=== PATIENT | female | born 1975 | race Caucasian/White ===

== ENCOUNTER 2018-06-22 06:31 | Emergency (ER) | payer MEDICAID, OTHER ==
[~2018-06-22] VITALS: Ht 170.2 cm; Wt 89.6 kg
[~2018-06-22 06:31] MED LIST: NEOM10DR45 EACH EAR; ONDA4TAB59 PO; PERM60CR4 TP
[2018-06-22] MEDS ORDERED: HYDROcodone/acetaminophen 5mg/325mg tablet PO ONE ×2 (06:50→09:10)
[2018-06-22] MEDS ORDERED: ondansetron 4mg rapidly disintigrating tab PO ONE (06:50)
[2018-06-22 06:55] LABS: URINE HCG NEGATIVE (NEG)
[2018-06-22 07:00] LABS: CLARITY,URINE CLEAR (Clear); COLOR,URINE YELLOW (Yellow); GLUCOSE, URINE NEGATIVE (Neg); KETONES,URINE NEGATIVE (Neg); LEUKOCYTE ESTERASE ,URINE NEGATIVE (Neg); NITRITES, URINE NEGATIVE (Neg); OCCULT BLOOD,URINE NEGATIVE (Neg); PH,URINE 5.5 (4.8-8.0); PROTEIN,URINE NEGATIVE (Neg); UROBILINOGEN,URINE 0.2 E.U/dL (0.2-1.0)
[2018-06-22 07:01] LABS: UA COLLECTION TYPE CLN CATCH MIDSTREAM
[2018-06-22 07:22] LABS: ALANINE AMINOTRANSFERASE 31 U/L (12-78); ALBUMIN 3.8 G/DL (3.4-5.0); ALKALINE PHOSPHATASE 88 IU/L (46-116); AMYLASE 51 U/L (25-115); ANION GAP 13 (8-16); ASPARTATE AMINO TRANSFERASE 20 U/L (10-37); BILIRUBIN,TOTAL 0.3 MG/DL (0.1-1.0); BLOOD UREA NITROGEN 9 MG/DL (7-18); BUN/CREATININE RATIO 11.1 (6.6-38.0); CALCIUM 9.2 MG/DL (8.5-10.1); CHLORIDE 103 MMOL/L (99-107); CREATININE 0.81 MG/DL (0.40-0.90); GLUCOSE 131 MG/DL (70-104); LIPASE 172 U/L (73-393); POTASSIUM 3.7 MMOL/L (3.5-5.1); SODIUM 141 MMOL/L (135-145); TOTAL CARBON DIOXIDE 24.9 MMOL/L (24-32); TOTAL PROTEIN 7.8 G/DL (6.4-8.2); eGFR 77 ML/MIN
[2018-06-22] MEDS ORDERED: iohexol 300mg/ml 100ml inj. ONE (07:27)
[2018-06-22 07:35] VITALS: BP 123/79
[2018-06-22 07:36] LABS: BASOPHILS % (AUTO) 0.5 % (0-1); EOSINOPHILS # (AUTO) 0.2 X10'3 (0-0.9); HEMATOCRIT 44.5 % (35.0-45.0); LYMPHOCYTES # (AUTO) 0.9 X10'3 (1.1-4.8); LYMPHOCYTES % (AUTO) 10.7 % (21-51); MEAN CORPUSCULAR HEMOGLOBIN 27.3 PG (27.0-31.0); MEAN CORPUSCULAR HGB CONC 33.7 % (33.0-36.5); MEAN CORPUSCULAR VOLUME 80.8 FL (78-98); MEAN PLATELET VOLUME 8.4 FL (7.4-10.4); MONOCYTES # (AUTO) 0.4 X10'3 (0-0.9); MONOCYTES % (AUTO) 4.3 % (2-12); NEUTROPHILS # (AUTO) 6.7 X10'3 (1.8-7.7); NEUTROPHILS % (AUTO) 81.5 % (42-75); PLATELET COUNT 258 X10'3 (140-440); WHITE BLOOD COUNT 8.3 X10'3 (4.5-11.0)
[2018-06-22 07:47] LABS: PROTHROMBIN TIME 10.3 SECONDS (9.0-12.0)
[2018-06-22] MEDS ORDERED: ONDA8TAB9 PO (09:12)
[2018-06-22] MEDS ORDERED: HYDR-3965 PO (09:12)
== END 2018-06-22 09:48 | disposition home or self-care (01) ==
LOC: ER 06:31
DX: R19.03 Right lower quadrant abdominal swelling, mass and lump (principal); R10.11 Right upper quadrant pain
CPT/HCPCS: 36415; 74177; 76700; 80053; 81003; 81025; 82150; 83690; 85025; 85610; 99284; Q9967

== ENCOUNTER 2019-04-30 16:10 | Emergency (ER) | payer BC ==
[~2019-04-30] VITALS: Ht 170.2 cm; Wt 90.9 kg
[~2019-04-30 16:10] MED LIST changes: -NEOM10DR45 EACH EAR; +ONDA8TAB9 PO; -PERM60CR4 TP
[2019-04-30] MEDS ORDERED: ROBDML PO (16:45)
[2019-04-30] MEDS ORDERED: IPRA30SP (16:45)
[2019-04-30 17:05] VITALS: BP 114/87
== END 2019-04-30 16:55 | disposition home or self-care (01) ==
LOC: ER 16:10
DX: J06.9 Acute upper respiratory infection, unspecified (principal); F17.200 Nicotine dependence, unspecified, uncomplicated; Z90.710 Acquired absence of both cervix and uterus; Z79.899 Other long term (current) drug therapy
CPT/HCPCS: 99283

== ENCOUNTER 2019-05-05 23:13 | Emergency (ER) | payer BC ==
[~2019-05-05] VITALS: Ht 170.2 cm; Wt 79.0 kg
[~2019-05-05 23:13] MED LIST changes: +IPRA30SP; +ROBDML PO
[2019-05-05 23:15] VITALS: BP 110/75
[2019-05-05] MEDS ORDERED: AZIT250T PO (23:28)
== END 2019-05-05 23:50 | disposition home or self-care (01) ==
LOC: ER 23:14
DX: J06.9 Acute upper respiratory infection, unspecified (principal); Z90.710 Acquired absence of both cervix and uterus; Z79.899 Other long term (current) drug therapy
CPT/HCPCS: 99283

== ENCOUNTER 2019-11-19 08:12 | Emergency (ER) | payer BC ==
[~2019-11-19] VITALS: Ht 170.2 cm; Wt 91.5 kg
[~2019-11-19 08:12] MED LIST changes: +AZIT250T PO; -ROBDML PO
[2019-11-19 08:14] VITALS: BP 119/86
[2019-11-19] MEDS ORDERED: TRIA15CR61 TOP (09:26)
== END 2019-11-19 09:42 | disposition home or self-care (01) ==
LOC: ER 08:12
DX: L30.9 Dermatitis, unspecified (principal); F17.200 Nicotine dependence, unspecified, uncomplicated; Z76.0 Encounter for issue of repeat prescription; Z90.710 Acquired absence of both cervix and uterus; Z79.899 Other long term (current) drug therapy
CPT/HCPCS: 99281

== ENCOUNTER 2021-09-20 14:47 | Emergency (ER) | payer SELFPAY ==
[~2021-09-20] VITALS: Ht 170.2 cm; Wt 95.5 kg
[2021-09-20 15:02] VITALS: BP 136/78
[2021-09-20] MEDS ORDERED: AMOX-580 PO (15:25)
== END 2021-09-20 15:56 | disposition home or self-care (01) ==
LOC: ER 14:49
DX: J01.00 Acute maxillary sinusitis, unspecified (principal); R05.9 Cough, unspecified; R09.89 Other specified symptoms and signs involving the circulatory and respiratory systems; Z90.710 Acquired absence of both cervix and uterus; Z72.0 Tobacco use; Z79.2 Long term (current) use of antibiotics; Z79.899 Other long term (current) drug therapy
CPT/HCPCS: 99283

== ENCOUNTER 2021-09-24 18:34 | Emergency (ER) | payer OTHER ==
[~2021-09-24] VITALS: Ht 170.2 cm; Wt 95.5 kg
[~2021-09-24 18:34] MED LIST changes: +AMOX-580 PO
[2021-09-24 18:44] VITALS: BP 107/88
[2021-09-24] MEDS ORDERED: ALBU6.7H9 INH (19:17)
[2021-09-24] MEDS ORDERED: PRED10TA23 PO (19:17)
[2021-09-24] MEDS ORDERED: BUDE180A INH (19:17)
== END 2021-09-24 19:35 | disposition home or self-care (01) ==
LOC: ER 18:34
DX: J40 Bronchitis, not specified as acute or chronic (principal); Z20.822 Contact with and (suspected) exposure to COVID-19; H93.19 Tinnitus, unspecified ear; F17.200 Nicotine dependence, unspecified, uncomplicated; Z90.710 Acquired absence of both cervix and uterus; Z78.0 Asymptomatic menopausal state; Z79.2 Long term (current) use of antibiotics; Z79.899 Other long term (current) drug therapy
CPT/HCPCS: 71045; 87635; 99284; C9803; 99283

== ENCOUNTER 2023-11-10 20:33 | Emergency (ER) | payer OTHER ==
[~2023-11-10] VITALS: Ht 170.2 cm; Wt 97.0 kg
[~2023-11-10 20:33] MED LIST changes: +ALBU6.7H14 INH; -AMOX-580 PO; +BUDE180A INH
[2023-11-10 20:41] VITALS: BP 146/99; PULSE 96; RESP 16; TEMP 98; O2SAT 98
[2023-11-10] MEDS ORDERED: TRIA15CR61 TOP (22:16)
[2023-11-10] MEDS: dexamethasone sod phosphate 10mg/ml inj IM STA (22:24)
== END 2023-11-10 22:28 | disposition home or self-care (01) ==
LOC: ER 20:34
DX: L30.1 Dyshidrosis [pompholyx] (principal); Z79.899 Other long term (current) drug therapy; Z79.2 Long term (current) use of antibiotics; Z90.710 Acquired absence of both cervix and uterus
CPT/HCPCS: 96372; 99283; J1100

== ENCOUNTER 2024-09-17 18:51 | Emergency (ER) | payer MEDICAID, OTHER ==
[~2024-09-17] VITALS: Ht 170.2 cm; Wt 102.8 kg
[~2024-09-17 18:51] MED LIST changes: -BUDE180A INH; +BUDE180A5 INH
[2024-09-17] MEDS ORDERED: AMOX-580 PO (19:46)
[2024-09-17] MEDS ORDERED: HYDR-3965 PO (19:46)
[2024-09-17 20:07] VITALS: BP 142/95; PULSE 97; RESP 17; TEMP 98.2; O2SAT 99
== END 2024-09-17 20:09 | disposition home or self-care (01) ==
LOC: ER 18:52
DX: K02.9 Dental caries, unspecified (principal); K04.7 Periapical abscess without sinus; Z90.710 Acquired absence of both cervix and uterus; Z79.899 Other long term (current) drug therapy
CPT/HCPCS: 99283

== ENCOUNTER 2025-07-10 14:31 | Emergency (ER) | payer SELFPAY ==
[~2025-07-10] VITALS: Ht 170.2 cm; Wt 99.3 kg
[2025-07-10 14:38] VITALS: BP 131/83; PULSE 110; RESP 18; O2SAT 98
[2025-07-10] MEDS ORDERED: PSEU-303 PO (15:31)
[2025-07-10] MEDS ORDERED: GUAI400T92 PO (15:31)
--- NOTE | 2025-07-10 15:32 | Physician Documentation ---
History of Present Illness ~ Chief Complaint: Cold, cough & congestion Stated Complaint: COLD Time Seen by MD: 14:44 Primary Medical Doctor: NONE HPI This is a 50-year-old female who presents with three days of productive cough and runny nose without fever, chest pain, or shortness breath. Patient reports recent contact with a sick grandchild with similar symptoms. Patient reports no other acute symptoms or concerns. Medication Reconciliation Allergies: Coded Allergies: No Known Allergies (Unverified , 09/17/24) Scheduled Albuterol Sulfate (Proventil Hfa), 2 PUFFS INH Q6H Azithromycin (Zithromax), 1 DOSPAK PO UD Budesonide (Pulmicort Flexhaler), 2 PUFFS INH Q12H Guaifenesin (Guaifenesin), 1 TAB PO Q8H Ipratropium [place] Nasal [place]* (Atrovent Nasal [place]*), 2 SPRAY NA BID Ondansetron Hcl (Ondansetron Hcl), 4 MG PO Q8H PRN N/V Pseudoephedrine HCl (Sudafed), 1 TAB PO Q8H Scheduled PRN Ondansetron (Zofran Odt), 8 MG PO QID PRN for nausea/vomiting Past Medical History Past Medical History: Bronchitis Past Surgical History: hysterectomy Other Past Family History: Early menopause in her family Alcohol Use: Rarely Drug Use: none Lives with: Family Lives In: Home Occupation: employed Review of Systems ROS As stated above in the HPI, otherwise all systems are reviewed and negative. Physical Exam Vital Signs: Temperature: 97.7, Source: Temporal, Heart Rate: 110, Respiratory Rate: 18, BP: 131/83, Pulse Oximetry: 98, Weight: 99.300 Oxygen Flow Rate: 0 Physical Exam VITALS: Reviewed and as above. GENERAL: Alert, nontoxic appearing, no apparent distress. RESPIRATORY: No increased work of breathing, no respiratory distress, speaking in full clear sentences, clear lung sounds in all torres CV: Rate and rhythm no murmur Progress Results/Orders Results/Orders Vital Signs 07/10/25 07/10/25 14:38 15:36 Temp 97.7 97.7 Pulse 110 Resp 18 B/P (MAP) 131/83 Pulse Ox 98 O2 Flow Rate 0 Medical Decision Making Additional information obtaine: N/A Findings This 50-year-old female presented with three days of nasal congestion and productive cough without fever, chest pain, or shortness of breath, consistent with uncomplicated upper respiratory tract infection. Patient had benign physical exam with clear lung sounds in all torres and vital signs were stable with no evidence of hypoxia. Given patient's recent contact with sick family member I suspect viral origin, at this time imaging not indicated. Antibiotics not indicated. Patient is otherwise well-appearing and appropriate for outpatient follow up. Patient provided careful return to care precautions, follow up instructions, and home care instructions which she verbalized understanding. Differential Dx:Considerations: Include: Allergic rhinitis, Influenza, Otitis media, Peritonsillar abscess, Pharyngitis-Diphtheria, Pharyngitis-Streptoccal, Pharyngitis-Viral, Pneumonia, Pnuemonitis, Sinusitis, URI Departure Time of Disposition: 15:29 Disposition: HOME / SELF CARE / HOMELESS Impression: Primary Impression: Acute respiratory infection Condition: Improved Discharge Instructions: Upper Respiratory Infection, Adult Additional Instructions: Your physical exam was reassuring, your symptoms are likely viral. Please stay well hydrated, cover your cough, and wash her hands frequently. Please use the prescribed Sudafed for nasal congestion. Nasal saline rinses may help with your nasal congestion. Warm fluids and honey may help with your cough. You may use the prescribed guaifenesin as needed for productive cough to help clear mucous. Please follow up with your primary care provider in the next few days. Please return to the emergency department for any new or worsening concerning symptoms but not limited to chest pain, difficulty breathing, or if you develop a fever over 100.4 does not lower with ibuprofen or Tylenol. Referrals: NO PRIMARY CARE PROVIDER (PCP) Prescriptions Guaifenesin (Guaifenesin) 400 Mg Tablet 1 TAB PO Q8H for cough for 5 Days, #15 TAB 0 Refills Prov: DERRELL NAJERA 07/10/25 Pseudoephedrine HCl (Sudafed) 30 Mg Tablet 1 TAB PO Q8H for 10 Days, #30 TAB 0 Refills Prov: DERRELL NAJERA 07/10/25 Education Educated: Patient Educated regarding: diagnosis, treatment, prognosis, need for follow up Signature Scribe Signature: No Scribe Attestation: The note accurately reflects work and decisions made by me.DEJA Rolon 07/10/25 21:18 DERRELL NAJERA Jul 10, 2025 15:31
[2025-07-10 15:36] VITALS: TEMP 97.7
== END 2025-07-10 15:37 | disposition home or self-care (01) ==
LOC: ER 14:32
DX: J22 Unspecified acute lower respiratory infection (principal); Z90.710 Acquired absence of both cervix and uterus; Z79.899 Other long term (current) drug therapy
CPT/HCPCS: 99283

== ENCOUNTER 2025-07-26 09:14 | Emergency (ER) | payer SELFPAY ==
[~2025-07-26] VITALS: Ht 167.6 cm; Wt 98.5 kg
[~2025-07-26 09:14] MED LIST changes: +GUAI400T92 PO; +PSEU-303 PO
[2025-07-26 09:32] VITALS: BP 126/92; PULSE 83; RESP 18; TEMP 97.8; O2SAT 100
--- NOTE | 2025-07-26 09:51 | Physician Documentation ---
HPI ~ General Chief Complaint: Tooth Problem Stated Complaint: TOOTH PAIN Time Seen by MD: 09:31 Primary Medical Doctor: NONE History of Present Illness HPI Comment Patient is a very pleasant 50-year-old female that presents to the emergency department for evaluation of significant tooth pain times several days. Reports that she has attempted to be seen at the [facility] on [address] [place] 2 days in a row but has been turned away each day due to no available appointments. Patient is requesting antibiotics this time. Patient will continue attempting to follow up with the dental clinic in the meantime. Patient denies fever chills nausea vomiting diarrhea at this time. Patient denies any difficulty swallowing or any airway concerns at this time. Medication Reconciliation Allergies: Coded Allergies: No Known Allergies (Unverified , 07/26/25) Scheduled Albuterol Sulfate (Proventil Hfa), 2 PUFFS INH Q6H Azithromycin (Zithromax), 1 DOSPAK PO UD Budesonide (Pulmicort Flexhaler), 2 PUFFS INH Q12H Guaifenesin (Guaifenesin), 1 TAB PO Q8H Ipratropium [place] Nasal [place]* (Atrovent Nasal [place]*), 2 SPRAY NA BID Ondansetron Hcl (Ondansetron Hcl), 4 MG PO Q8H PRN N/V Pseudoephedrine HCl (Sudafed), 1 TAB PO Q8H Scheduled PRN Ondansetron (Zofran Odt), 8 MG PO QID PRN for nausea/vomiting Past Medical History Past Medical History: Bronchitis Past Surgical History: hysterectomy Other Past Family History: Early menopause in her family Alcohol Use: Rarely Drug Use: none Lives with: Family Lives In: Home Occupation: employed Review of Systems ROS As stated above in the HPI, otherwise all systems are reviewed and negative. Physical Exam Vital Signs: Temperature: 97.8, Source: Oral, Heart Rate: 83, Respiratory Rate: 18, BP: 126/92, Pulse Oximetry: 100, Weight: 98.500 Oxygen Flow Rate: 0 Physical Exam VITALS: Reviewed and as above. GENERAL: Alert, no apparent distress. HEENT: Normocephalic, atraumatic, PERRL, EOMI, dry mucosa, no erythema, edema noted to the right upper gumline adjacent to a tooth of concern, mild swelling to the right cheek, mild right-sided lymphadenopathy noted. RESPIRATORY: Lungs clear, normal breath sounds, no respiratory distress. SKIN: Warm and dry, no rash NEURO: Oriented x4, No motor or sensory deficit PSYCH: Normal mood and affect, no agitation Progress Results/Orders Results/Orders Vital Signs 07/26/25 09:32 Temp 97.8 Pulse 83 Resp 18 B/P (MAP) 126/92 Pulse Ox 100 O2 Flow Rate 0 Medical Decision Making Additional information obtaine: other Findings Chief Complaint: 50-year-old female presenting with severe tooth pain for several days. History of Present Illness: Patient reports significant tooth pain for several days. She has attempted to obtain dental care at [facility] on [facility] for 2 consecutive days but was unable to secure an appointment. Patient denies fever, chills, nausea, vomiting, diarrhea, difficulty swallowing, or airway concerns. Patient reports inadequate pain control with acetaminophen and ibuprofen and has used topical anesthetics in excess. Emergency Department Course: Patient received first dose of amoxicillin- clavulanate (Augmentin) in the emergency department. Pain management was discussed extensively with the patient. Medical Decision Making: Diagnosis: Odontogenic pain, likely dental abscess or pulpal infection Complexity of Decision Making: Moderate The patient presents with dental pain requiring antibiotic therapy. Per [place] guidelines, antibiotics are indicated for individuals unlikely to see a dentist imminently who present with localized abscess or swelling. [1-2] Amoxicillin-clavulanate is an appropriate first-line antibiotic for odontogenic infections, with coverage of both aerobic and anaerobic oral pathogens. [3-4] The typical duration of therapy is 3-7 days, with patients instructed to discontinue antibiotics 24 hours after symptom resolution. [2] Regarding pain management, the [employer] recommends co mbination therapy with NSAIDs and acetaminophen (specifically 400-600 mg ibuprofen plus 1000 mg acetaminophen) as first-line treatment for dental pain. [1-2] Opioids are only indicated when NSAIDs and acetaminophen are contraindicated or when pain control is inadequate despite their use. [1] Given the patient's report of inadequate pain control with [id number] analgesics and the need for bridging therapy until antibiotics take effect, a limited 1-day supply of hydrocodone-acetaminophen 5 mg is reasonable. The patient denies concerning features that would indicate systemic involvement or deep space infection, including fever, malaise, fascial space involvement, lymph node involvement, difficulty swallowing, or airway compromise. [2] These features would necessitate urgent evaluation and potentially hospital admission. The patient was counseled to return immediately if she develops any of these warning signs. Plan: Amoxicillin-clavulanate prescription to be filled at pharmacy today Hydrocodone-acetaminophen 5 mg for 1 day supply for bridging pain control Follow-up with [facility] for definitive dental treatment Follow-up with primary care provider Return precautions discussed: fever, worsening swelling, difficulty swallowing, difficulty breathing, spreading infection, or any other concerning symptoms Patient instructed to discontinue antibiotics 24 hours after symptoms resolve Patient counseled on importance of definitive dental care and that antibiotics alone are not curative without source control Disposition: Discharge home in stable condition with close outpatient follow-up Differential Dx:Considerations: Include: Alveolar fracture, Alveolar osteitis, ANUG, Facial Cellulitis, Periapical abscess, Peridontal abscess, Post-extraction bleeding, Pulpitis, Tooth avulsion, Tooth eruption, Tooth Fracture, Trigeminal neuralgia, Tooth subluxation, Other Departure Disposition: 01 HOME / SELF CARE / HOMELESS Impression: Primary Impression: Dental abscess Additional Impression: Toothache Condition: Stable Additional Instructions: Your Diagnosis: Tooth infection What You Need to Know: You were seen today for a tooth infection. You received your first dose of antibiotic (Augmentin) in the emergency department. Antibiotics alone will not cure your tooth infection - you must see a dentist for definitive treatment such as a root canal, drainage, or tooth extraction. 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 Take as prescribed (typically 500 mg every 8-12 hours) Take with food to reduce stomach upset [2-3] Stop the antibiotic 24 hours after your symptoms go away, even if you have pills left [1] Complete at least 3 days of treatment [place] (hydrocodone-acetaminophen) 5 mg: You have a 1-day supply for severe pain Take as directed for pain Do not drive or operate machinery while taking this medication After this runs out, use ibuprofen 400-600 mg plus acetaminophen (Tylenol) 1000 mg together for pain [1][4] Pain Management: The best pain relief for tooth pain is ibuprofen plus acetaminophen taken to gether: [1][4] Ibuprofen 400-600 mg every 6-8 hours, PLUS Acetaminophen (Tylenol) 1000 mg every 6-8 hours You can alternate these medications or take them at the same time What You Must Do: See a dentist as soon as possible - Continue trying to get an appointment at [facility] on [place] Follow up with your primary care doctor as discussed 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 When to Return to the Emergency Department Immediately: Call 911 or return to the emergency department if you develop any of these warning signs: [1][5] Fever (temperature over 100.4F) Increased swelling in your face, jaw, or neck Difficulty swallowing Difficulty breathing or shortness of breath Swelling around your eye or vision changes Severe headache or confusion Swelling that spreads beyond the tooth area Feeling very ill or weak Pain that gets worse despite antibiotics Diarrhea (3 or more loose stools per day) or severe abdominal cramping [1] Important Reminders: Drink plenty of fluids Avoid chewing on the affected side Maintain good oral hygiene - continue brushing and flossing gently The antibiotic should start working within 2-3 days [1] You must see a dentist - antibiotics are only temporary treatment [1][4] Questions? Call your primary care doctor or return to the emergency department if you have concerns. Referrals: NO PRIMARY CARE PROVIDER (PCP) Prescriptions Hydrocodone Bit/Acetaminophen 5/325 MG ([place] 5/325 MG) 5 Mg/325 Mg Tablet 1 TAB PO Q6H PRN for pain for 1 Day, #4 TAB Prov: MICHELLE BIRMINGHAM 07/26/25 Amox Tr/Potassium Clavulanate 875/125 MG (Augmentin 875/125 MG) 875 Mg-125 Mg Tablet 1 TAB PO Q12H for 10 Days, #20 TAB Prov: MICHELLE BIRMINGHAM 07/26/25 Education Educated: Patient Educated regarding: diagnosis, treatment, need for follow up Signature Scribe Signature: A Attestation: Scribed for Michelle Birmingham by DEJA Arambula . 07/26/25 10:22 MICHELLE BIRMINGHAM Jul 26, 2025 09:51
[2025-07-26] MEDS ORDERED: AMOX-580 PO (10:19)
[2025-07-26] MEDS ORDERED: HYDR-3965 PO (10:19)
[2025-07-26] MEDS: amox tr/potassium clavulanate 875/125mg TAB PO ONE (10:32)
== END 2025-07-26 10:36 | disposition home or self-care (01) ==
LOC: ER 09:15
DX: K04.7 Periapical abscess without sinus (principal); Z90.710 Acquired absence of both cervix and uterus; Z79.899 Other long term (current) drug therapy
CPT/HCPCS: 99283